=== PATIENT | male | born 1955 | race Two or more races ===

== ENCOUNTER 2022-03-21 20:16 | Emergency (ER) | payer MEDICARE, MEDICAID ==
[2022-03-21 21:06] VITALS: BP 111/69; PULSE 77
[2022-03-21] MEDS ORDERED: Nicotine 21 MG/24 Hr Patch TRDERM ONE (21:09)
[2022-03-21 21:21] LABS: CHLORIDE,CL 104 mEq/L (98-106); SODIUM,NA 142 mEq/L (136-145)
[2022-03-21] MEDS ORDERED: Acetaminophen/oxyCODONE 325-5 MG Tab PO ONE ×2 (21:30→22:40)
[2022-03-21] MEDS: Ketorolac 30 MG/ML SDV IM ONE ×2 (21:34→21:58)
== END 2022-03-21 23:35 | disposition home or self-care (01) ==
LOC: CC.ED 20:16
DX: F32.A Depression, unspecified (principal); R20.2 Paresthesia of skin; J44.9 Chronic obstructive pulmonary disease, unspecified; E11.9 Type 2 diabetes mellitus without complications; E78.00 Pure hypercholesterolemia, unspecified; I10 Essential (primary) hypertension; Z86.73 Personal history of transient ischemic attack (TIA), and cerebral infarction without residual deficits; Z79.82 Long term (current) use of aspirin; Z79.02 Long term (current) use of antithrombotics/antiplatelets; Z79.899 Other long term (current) drug therapy; Z86.16 Personal history of COVID-19; Z87.891 Personal history of nicotine dependence
CPT/HCPCS: 36415; 80048; 85025; 96372; 99284; A9270-GY; J1885

== ENCOUNTER 2022-06-03 23:25 | Emergency (ER) | payer MEDICARE, MEDICAID ==
[2022-06-03] MEDS: Naloxone 2 MG/2 ML Syringe IVPUSH ONE (23:28)
[2022-06-03 23:46] VITALS: BP 120/70; PULSE 93
[2022-06-04 00:07] LABS: POTASSIUM,POC 4.3 mmol/L (3.5-4.5)
== END 2022-06-04 02:15 | disposition home or self-care (01) ==
LOC: CC.ED 23:25
DX: G89.4 Chronic pain syndrome (principal); T40.2X5A Adverse effect of other opioids, initial encounter; E78.00 Pure hypercholesterolemia, unspecified; I10 Essential (primary) hypertension; J44.9 Chronic obstructive pulmonary disease, unspecified; K21.9 Gastro-esophageal reflux disease without esophagitis; N40.0 Benign prostatic hyperplasia without lower urinary tract symptoms; E11.9 Type 2 diabetes mellitus without complications; Z79.02 Long term (current) use of antithrombotics/antiplatelets; Z79.82 Long term (current) use of aspirin; Z79.899 Other long term (current) drug therapy; Z86.16 Personal history of COVID-19; Z86.73 Personal history of transient ischemic attack (TIA), and cerebral infarction without residual deficits
CPT/HCPCS: 36415; 70450; 80047; 85025; 85730; 96374; 99284; 99285-25; J2310

== ENCOUNTER 2024-03-30 22:19 | Emergency (ER) | payer MEDICARE, MEDICAID ==
[2024-03-30 22:32] VITALS: BP 173/101; PULSE 92
[2024-03-30] MEDS: Morphine 4 MG/ML VIAL IVPUSH ONE (22:44)
[2024-03-30] MEDS: Ondansetron 4 MG/2 ML SDV IVPUSH STA (22:45)
[2024-03-30 23:05] LABS: BASOPHILS ABSOLUTE AUTO 0.03 10^3/uL (0.00-0.50); BASOPHILS PERCENT AUTO 0.2 % (0-1); EOSINOPHILS PERCENT AUTO 5.6 % (0-6); HEMATOCRIT 42.3 % (42.0-52.0); HEMOGLOBIN 14.1 g/dL (14.0-18.0); IMMATURE GRAN ABSOLUTE AUTO 0.04 10^3/uL (0.00-0.49); IMMATURE GRAN PERCENT AUTO 0.3 % (0.0-4.9); LYMPHOCYTES ABSOLUTE AUTO 2.71 10^3/uL (0.60-5.00); LYMPHOCYTES PERCENT AUTO 21.8 % (24-44); MEAN CORPUSCULAR HEMOGLOBIN 30.7 pg (27.0-32.0); MEAN CORPUSCULAR HGB CONC 33.3 g/dL (32.0-36.0); MONOCYTES ABSOLUTE AUTO 1.02 10^3/uL (0.00-1.50); MONOCYTES PERCENT AUTO 8.2 % (0-10); NEUTROPHILS ABSOLUTE AUTO 7.94 x10^3/uL (1.80-8.00); NEUTROPHILS PERCENT AUTO 63.9 % (41-71); PLATELET COUNT,PLT 322 10^3/uL (150-400); WHITE BLOOD CELL COUNT,WBC 12.4 10^3/uL (4.0-11.0)
[2024-03-30 23:19] LABS: ALANINE AMINOTRANSFERASE,ALT 26 U/L (12-78); ALBUMIN 3.7 g/dL (3.4-5.0); ALKALINE PHOSPHATASE 205 U/L (46-116); ASPARTATE AMNIOTRANSFERASE,AST 18 U/L (15-37); BILIRUBIN TOTAL 0.3 mg/dL (0.0-1.0); BLOOD UREA NITROGEN,BUN 19 mg/dL (7-18); CALCIUM 9.6 mg/dL (8.4-10.1); CARBON DIOXIDE,CO2 32 mmol/L (21-32); CHLORIDE,CL 102 mEq/L (98-106); CREATININE 1.4 mg/dL (0.7-1.3); EST CRCL DRUG DOSING (CG) 53.59 mL/min; GLUCOSE RANDOM 132 mg/dL (75-99); MAGNESIUM 1.9 mg/dL (1.8-2.4); POTASSIUM,K 3.6 mEq/L (3.5-5.0); PROTEIN TOTAL,TP 8.1 g/dL (6.4-8.2); SODIUM,NA 140 mEq/L (136-145)
[2024-03-30 23:20] LABS: ESTIMATED GFR 55 mL/min (>=60)
== END 2024-03-31 00:51 | disposition home or self-care (01) ==
LOC: CC.ED 22:19
DX: S52.502A Unspecified fracture of the lower end of left radius, initial encounter for closed fracture (principal); I10 Essential (primary) hypertension; E78.00 Pure hypercholesterolemia, unspecified; J44.9 Chronic obstructive pulmonary disease, unspecified; K21.9 Gastro-esophageal reflux disease without esophagitis; E11.9 Type 2 diabetes mellitus without complications; Z86.73 Personal history of transient ischemic attack (TIA), and cerebral infarction without residual deficits; Z79.51 Long term (current) use of inhaled steroids; Z79.899 Other long term (current) drug therapy; Z86.16 Personal history of COVID-19; Z87.891 Personal history of nicotine dependence; W19.XXXA Unspecified fall, initial encounter
CPT/HCPCS: 29125; 36415; 71045; 73030-LT; 73110-LT; 80053; 83735; 84484; 85025; 93005; 96374; 96375; 99284-25; J2270; J2405

== ENCOUNTER 2024-04-01 11:05 | Emergency (ER) | payer MEDICARE, MEDICAID ==
[2024-04-01] MEDS: Orphenadrine 60 MG/2 ML Inj IM ONE (12:01)
[2024-04-01 16:27] VITALS: BP 142/80; PULSE 72
== END 2024-04-01 14:25 | disposition home or self-care (01) ==
LOC: CC.ED 11:05
DX: S32.029A Unspecified fracture of second lumbar vertebra, initial encounter for closed fracture (principal); I10 Essential (primary) hypertension; E78.00 Pure hypercholesterolemia, unspecified; E11.9 Type 2 diabetes mellitus without complications; J44.9 Chronic obstructive pulmonary disease, unspecified; K21.9 Gastro-esophageal reflux disease without esophagitis; Z79.51 Long term (current) use of inhaled steroids; Z79.899 Other long term (current) drug therapy; Z86.73 Personal history of transient ischemic attack (TIA), and cerebral infarction without residual deficits; Z86.16 Personal history of COVID-19; W19.XXXA Unspecified fall, initial encounter
CPT/HCPCS: 72131; 96372; 99284; J2360

== ENCOUNTER 2024-04-04 18:10 | Emergency (ER) | payer MEDICARE, MEDICAID ==
[2024-04-04 18:33] LABS: BASOPHILS ABSOLUTE AUTO 0.03 10^3/uL (0.00-0.50); BASOPHILS PERCENT AUTO 0.2 % (0-1); EOSINOPHILS ABSOLUTE AUTO 0.37 10^3/uL (0.00-1.50); EOSINOPHILS PERCENT AUTO 2.2 % (0-6); HEMATOCRIT 45.4 % (42.0-52.0); IMMATURE GRAN ABSOLUTE AUTO 0.03 10^3/uL (0.00-0.49); IMMATURE GRAN PERCENT AUTO 0.2 % (0.0-4.9); LYMPHOCYTES ABSOLUTE AUTO 2.22 10^3/uL (0.60-5.00); MEAN CORPUSCULAR HEMOGLOBIN 30.1 pg (27.0-32.0); MEAN CORPUSCULAR VOLUME 91.2 fL (83.0-97.0); MONOCYTES ABSOLUTE AUTO 0.97 10^3/uL (0.00-1.50); MONOCYTES PERCENT AUTO 5.7 % (0-10); NEUTROPHILS ABSOLUTE AUTO 13.43 x10^3/uL (1.80-8.00); NEUTROPHILS PERCENT AUTO 78.7 % (41-71); PLATELET COUNT,PLT 379 10^3/uL (150-400); RED BLOOD CELL COUNT 4.98 x10^6/uL (4.50-6.00); WHITE BLOOD CELL COUNT,WBC 17.1 10^3/uL (4.0-11.0)
[2024-04-04 18:46] LABS: ALBUMIN 3.9 g/dL (3.4-5.0); BILIRUBIN TOTAL 0.6 mg/dL (0.0-1.0); C-REACTIVE PROTEIN 9.13 mg/dL (<=0.50); CALCIUM 10.1 mg/dL (8.4-10.1); CREATININE 1.6 mg/dL (0.7-1.3); EST CRCL DRUG DOSING (CG) 31.18 mL/min; POTASSIUM,K 3.2 mEq/L (3.5-5.0); PROTEIN TOTAL,TP 9.1 g/dL (6.4-8.2)
[2024-04-04 18:53] VITALS: BP 133/85; PULSE 84
[2024-04-04 19:10] LABS: CORONAVIRUS COVID-19 NAA NEGATIVE (NEGATIVE); INFLUENZA A NAA NEGATIVE (NEGATIVE); INFLUENZA B NAA NEGATIVE (NEGATIVE); RESPIRATORY SYNCYTIAL VIR NAA NEGATIVE (NEGATIVE)
[2024-04-04] MEDS: cefTRIAXone 2 GM Vial IM ONE (19:32)
[2024-04-04] MEDS: Take Home: predniSONE 20 MG, 2 Tab Pack PO ONE (19:32)
[2024-04-04] MEDS: Take Home: Cefuroxime 250 MG Tab, 2 Tab Pack PO ONE (19:32)
== END 2024-04-04 20:05 | disposition home or self-care (01) ==
LOC: CC.ED 18:10
DX: J20.9 Acute bronchitis, unspecified (principal); I10 Essential (primary) hypertension; E78.00 Pure hypercholesterolemia, unspecified; J44.9 Chronic obstructive pulmonary disease, unspecified; E11.9 Type 2 diabetes mellitus without complications; K21.9 Gastro-esophageal reflux disease without esophagitis; Z86.16 Personal history of COVID-19; Z79.899 Other long term (current) drug therapy; Z79.01 Long term (current) use of anticoagulants
CPT/HCPCS: 0241U; 36415; 71045; 80053; 83880; 85025; 86140; 96372; 99283; 99284; A9270; J0696; J7512; 71046

== ENCOUNTER 2024-05-14 11:57 | Observation (INO) | payer MEDICARE, MEDICAID ==
[2024-05-14 13:36] LABS: ALANINE AMINOTRANSFERASE,ALT 21 U/L (12-78); ALBUMIN 3.4 g/dL (3.4-5.0); ALKALINE PHOSPHATASE 291 U/L (46-116); ASPARTATE AMNIOTRANSFERASE,AST 15 U/L (15-37); BILIRUBIN TOTAL 0.4 mg/dL (0.0-1.0); BLOOD UREA NITROGEN,BUN 20 mg/dL (7-18); CARBON DIOXIDE,CO2 30 mmol/L (21-32); CHLORIDE,CL 101 mEq/L (98-106); CREATININE 1.8 mg/dL (0.7-1.3); GLUCOSE RANDOM 104 mg/dL (75-99); POTASSIUM,K 4.1 mEq/L (3.5-5.0); PROTEIN TOTAL,TP 8.2 g/dL (6.4-8.2); SODIUM,NA 138 mEq/L (136-145)
[2024-05-14 13:37] LABS: ESTIMATED GFR 41 mL/min (>=60)
[2024-05-14 13:38] LABS: CALCIUM 12.5 mg/dL (8.4-10.1)
[2024-05-14] MEDS: HYDROmorphone 1 MG/ML Syringe IVPUSH ONE (15:15)
[2024-05-14] MEDS: Furosemide 40 MG/4 ML VIAL IVPUSH ONE (15:20)
[2024-05-14] MEDS ORDERED: Docusate Sodium 100 MG Cap PO PRN (15:35)
[2024-05-14] MEDS ORDERED: Polyethylene Glycol 3350 Powder 17 GM Packet PO PRN (15:35)
[2024-05-14] MEDS: Sodium Chloride 0.9% 1,000 ML IV SCH (16:02)
[2024-05-14] MEDS ORDERED: guaiFENesin 200 MG Tab PO PRN (16:35)
[2024-05-14] MEDS ORDERED: Cyclobenzaprine 10 MG Tab PO PRN (16:47)
[2024-05-14] MEDS: Hypromellose 0.3% Ophth Soln 15 ML Bottle EYEBOTH SCH (19:26)
[2024-05-14] MEDS: oxyCODONE ER 10 MG TAB.ER PO SCH (19:27)
[2024-05-14] MEDS: Potassium Chloride 20 MEQ Tab.ER PO SCH (19:27)
[2024-05-14] MEDS: Tamsulosin 0.4 MG Cap.ER PO SCH (19:27)
[2024-05-14] MEDS: Gabapentin 100 MG Cap PO SCH (19:28)
[2024-05-14] MEDS: Docusate Sodium 100 MG Cap PO SCH (19:28)
[2024-05-14] MEDS: Mirtazapine 15 MG Tab PO SCH (19:28)
[2024-05-15] MEDS: Pioglitazone 15 MG Tab PO SCH (07:45)
[2024-05-15] MEDS: Loratadine 10 MG Tab PO SCH (07:47)
[2024-05-15] MEDS: Multivitamins with Iron/Calcium/Folic Acid/Minerals Tab PO SCH (07:47)
[2024-05-15] MEDS: Aspirin 81 MG Tab.EC PO SCH (07:47)
[2024-05-15] MEDS: atorvaSTATin 20 MG Tab PO SCH (07:47)
[2024-05-15] MEDS: Pantoprazole 40 MG Tab.CR PO SCH (07:48)
[2024-05-15 08:03] LABS: BASOPHILS ABSOLUTE AUTO 0.03 10^3/uL (0.00-0.50); BASOPHILS PERCENT AUTO 0.4 % (0-1); EOSINOPHILS ABSOLUTE AUTO 0.73 10^3/uL (0.00-1.50); EOSINOPHILS PERCENT AUTO 8.9 % (0-6); HEMATOCRIT 42.5 % (42.0-52.0); HEMOGLOBIN 13.9 g/dL (14.0-18.0); IMMATURE GRAN ABSOLUTE AUTO 0.01 10^3/uL (0.00-0.49); IMMATURE GRAN PERCENT AUTO 0.1 % (0.0-4.9); LYMPHOCYTES ABSOLUTE AUTO 3.08 10^3/uL (0.60-5.00); LYMPHOCYTES PERCENT AUTO 37.7 % (24-44); MEAN CORPUSCULAR HEMOGLOBIN 29.8 pg (27.0-32.0); MEAN CORPUSCULAR HGB CONC 32.7 g/dL (32.0-36.0); MEAN CORPUSCULAR VOLUME 91.2 fL (83.0-97.0); MONOCYTES ABSOLUTE AUTO 0.65 10^3/uL (0.00-1.50); NEUTROPHILS ABSOLUTE AUTO 3.66 x10^3/uL (1.80-8.00); NEUTROPHILS PERCENT AUTO 44.9 % (41-71); PLATELET COUNT,PLT 385 10^3/uL (150-400); RED BLOOD CELL COUNT 4.66 x10^6/uL (4.50-6.00); WHITE BLOOD CELL COUNT,WBC 8.2 10^3/uL (4.0-11.0)
[2024-05-15 08:12] LABS: CALCIUM 11.8 mg/dL (8.4-10.1); CREATININE 1.5 mg/dL (0.7-1.3); EST CRCL DRUG DOSING (CG) 50.02 mL/min; MAGNESIUM 1.8 mg/dL (1.8-2.4); POTASSIUM,K 3.4 mEq/L (3.5-5.0)
[2024-05-15] MEDS: amLODIPine 2.5 MG Tab PO SCH (08:21)
[2024-05-15] MEDS: Atenolol 25 MG Tab PO SCH (08:21)
[2024-05-15 12:44] VITALS: BP 131/82; PULSE 88
[2024-05-15] MEDS: oxyCODONE 5 MG Tab PO PRN (13:41)
[2024-05-17 19:42] LABS: IONIZED CA@PH7.4 1.6 mmol/L (1.09-1.30); IONIZED CALCIUM 1.55 mmol/L (1.09-1.30)
== END 2024-05-15 14:00 | disposition home or self-care (01) ==
LOC: CC.LAB 11:57 → CC.FCMC 11:57 → CC.MS 14:06 → UNDOADMOB 14:06 → CC.MS 15:35
PROVIDERS: ADMIT Nurse Practitioner; ATTEND Nurse Practitioner
DX: E83.52 Hypercalcemia (principal); I10 Essential (primary) hypertension; J44.9 Chronic obstructive pulmonary disease, unspecified; E11.9 Type 2 diabetes mellitus without complications; E78.00 Pure hypercholesterolemia, unspecified; K21.9 Gastro-esophageal reflux disease without esophagitis; F32.A Depression, unspecified; Z79.899 Other long term (current) drug therapy
CPT/HCPCS: 36415; 71250; 73110-LT; 74176; 80048; 80053; 82330; 83735; 85025; 96360; 96361; A9270-GY; G0378; J1170; J1940; J7030